=== PATIENT | female | born 1995 | race African-American/Black ===

== ENCOUNTER 2020-01-29 21:49 | Emergency (ER) | payer SELFPAY ==
[~2020-01-29] VITALS: Ht 170.2 cm; Wt 86.0 kg
[2020-01-29] MEDS ORDERED: HALOPERIDOL LACTATE 5MG/ML VIAL IM ONE (22:30)
[2020-01-29 23:35] LABS: CHLORIDE 105 mEq/L (98-107)
[2020-01-29 23:39] LABS: ETHANOL BLOOD < 10 mg/dL
[2020-01-29 23:49] LABS: BASOPHILS % 0.3 % (0.0-2.0); EOSINOPHILS % 7.8 % (0.0-5.0); HEMATOCRIT. 38.9 % (36.0-48.0); HEMOGLOBIN. 13.1 g/dL (12.0-16.0); LYMPHOCYTES % 43.9 % (20.0-50.0); MEAN CORPUSCULAR HEMOGLOBIN 29.3 pg (28.0-32.0); MEAN CORPUSCULAR VOLUME 86.8 fL (81.0-99.0); MEAN PLATELET VOLUME 8.7 fl (7.4-10.4); MONOCYTES % 7.5 % (2.0-8.0); NEUTROPHILS % 40.5 % (40.0-76.0); PLATELET 246 x1000/uL (130-400); RED BLOOD CELL COUNT 4.48 mill/uL (4.2-5.4); RED CELL DISTRIBUTION WIDTH 14.7 % (11.6-14.6)
[2020-01-29 23:51] LABS: HCG SCREEN NEGATIVE
[2020-01-30 00:55] LABS: CLARITY URINE CLEAR (CLEAR); COLOR URINE YELLOW (YELLOW); KETONES URINE 3+ (NEGATIVE); LEUKOCYTE ESTERASE URINE TRACE (NEGATIVE); NITRITE URINE NEGATIVE (NEGATIVE); OCCULT BLOOD URINE 2+ (NEGATIVE); PH URINE 5.5 (4.5-8.0); PROTEIN URINE 2+ (NEGATIVE); SPECIFIC GRAVITY URINE 1.033 (1.005-1.030)
[2020-01-30 01:29] LABS: *BARBITURATES SCREEN URINE NEGATIVE (NEGATIVE); *BENZODIAZEPINES SCREEN URINE NEGATIVE (NEGATIVE); METHADONE URINE SCREEN NEGATIVE (NEGATIVE); OPIATES URINE SCREEN NEGATIVE (NEGATIVE); PHENCYCLIDINE URINE SCREEN NEGATIVE (NEGATIVE)
[2020-01-30 01:41] LABS: *AMPHETAMINES SCREEN URINE PRESUMTIVE POSITIVE (NEGATIVE); *COCAINE SCREEN URINE PRESUMTIVE POSITIVE (NEGATIVE); CANNABINOID URINE SCREEN PRESUMTIVE POSITIVE (NEGATIVE)
[2020-01-30] MEDS: POTASSIUM CHLORIDE 20MEQ TABLET SR PO SCH (08:45)
[2020-01-31 14:11] VITALS: BP 111/63
== END 2020-01-31 17:47 | disposition left against medical advice (07) ==
LOC: ER 21:49 → EDBD 21:49 → ER 01-31 17:47
DX: F14.188 Cocaine abuse with other cocaine-induced disorder (principal); F15.188 Other stimulant abuse with other stimulant-induced disorder; F16.188 Hallucinogen abuse with other hallucinogen-induced disorder; F12.188 Cannabis abuse with other cannabis-induced disorder
CPT/HCPCS: 36415; 70450; 71045; 80053; 80320; 84443; 84703; 85025; 96372; 99285; J1630; G0480